=== PATIENT | male | born 1955 | race Caucasian/White ===

== ENCOUNTER 2023-11-30 05:21 | Day surgery (SDC) | payer OTHER ==
[2023-11-22 15:32] LABS: BILIRUBIN,URINE NEGATIVE (Neg); CLARITY,URINE CLEAR (Clear); COLOR,URINE YELLOW (Yellow); GLUCOSE, URINE NEGATIVE (Neg); KETONES,URINE NEGATIVE (Neg); LEUKOCYTE ESTERASE ,URINE NEGATIVE (Neg); NITRITES, URINE NEGATIVE (Neg); OCCULT BLOOD,URINE TRACE-INTACT (Neg); PROTEIN,URINE NEGATIVE (Neg); UROBILINOGEN,URINE 0.2 E.U/dL (0.2-1.0)
[2023-11-22 15:34] LABS: BASOPHILS # (AUTO) 0.1 X10'3 (0-0.2); BASOPHILS % (AUTO) 1.2 % (0-1); EOSINOPHILS # (AUTO) 0.1 X10'3 (0-0.9); EOSINOPHILS % (AUTO) 2.1 % (0-6); LYMPHOCYTES # (AUTO) 2.5 X10'3 (1.1-4.8); LYMPHOCYTES % (AUTO) 36.1 % (21-51); MEAN CORPUSCULAR HEMOGLOBIN 32.3 PG (27.0-31.0); MEAN CORPUSCULAR HGB CONC 35.1 g/dL (33.0-36.5); MEAN PLATELET VOLUME 6.9 FL (7.4-10.4); MONOCYTES # (AUTO) 0.7 X10'3 (0-0.9); MONOCYTES % (AUTO) 9.5 % (2-12); NEUTROPHILS # (AUTO) 3.5 X10'3 (1.8-7.7); NEUTROPHILS % (AUTO) 51.1 % (42-75); PRE OP HEMATOCRIT 43.2 % (42.0-52.0); PRE OP HEMOGLOBIN 15.1 g/dL (14.0-17.9); PRE OP PLATELET COUNT 208 X10'3 (140-440); PRE OP WHITE BLOOD COUNT 6.9 10'3 (4.8-10.8); RED BLOOD COUNT 4.69 X10'6 (4.70-6.10); RED CELL DISTRIBUTION WIDTH 13.7 % (11.5-14.5)
[2023-11-22 15:46] LABS: UA COLLECTION TYPE CLN CATCH MIDSTREAM
[2023-11-22 15:47] LABS: BACTERIA,URINE NONE SEEN /HPF (Neg); RBC,URINE 0-2 /HPF (0-2); SQUAMOUS EPITHELIAL CELL,UR FEW /LPF (FEW)
[2023-11-22 15:48] LABS: WBC,URINE 0-4 /HPF (0-4)
[2023-11-22 15:53] LABS: ALBUMIN 3.8 G/DL (3.4-5.0); ALBUMIN/GLOBULIN RATIO 1.1 (1.1-1.5); ALKALINE PHOSPHATASE 96 IU/L (46-116); BLOOD UREA NITROGEN 15 MG/DL (7-18); BUN/CREATININE RATIO 9.6 (10.0-20.0); CALCIUM 8.8 MG/DL (8.5-10.1); CHLORIDE 104 MMOL/L (99-107); CREATININE 1.57 MG/DL (0.60-1.10); PRE OP ALT 36 U/L (30-65); PRE OP ANION GAP 8 (8-16); PRE OP AST 21 U/L (10-37); PRE OP BILIRUB, TOTAL 0.5 MG/DL (0.0-1.0); PRE OP GLUCOSE 115 MG/DL (70-104); PRE OP POTASSIUM 4.6 MMOL/L (3.4-5.1); PRE OP SODIUM 141 MMOL/L (135-145); TOTAL PROTEIN 7.3 G/DL (6.4-8.2); eGFR 44 ML/MIN
[~2023-11-30] VITALS: Ht 175.3 cm; Wt 92.1 kg
[2023-11-30] VITALS (9 sets, daily range): BP systolic 11–160; BP diastolic 54–87; PULSE 60–160; RESP 12–71; TEMP 97.7; O2SAT 95–98
[~2023-11-30 05:21] MED LIST: ASPI81TA52 PO; ATOR-2 PO; CHOL200080 PO; CYAN100087 PO; FLO0.4C PO; OMEP20CA16 PO
[2023-11-30] MEDS ORDERED: ringers solution, lacted 1,000 ML IV SCH ×2 (05:30→07:20)
[2023-11-30] MEDS: cefazolin 2gm/D5W 100mL 100 ML IV ONE (05:43)
[2023-11-30] MEDS: famotidine 20mg tablet PO ONE (05:48)
[2023-11-30] MEDS ORDERED: bacitracin 15gm ointment TP ONE (06:42)
[2023-11-30] MEDS ORDERED: BUPIVAcaine/PF 2.5mg/ml (0.25%) 10ml vial ONE (06:42)
[2023-11-30] MEDS ORDERED: fentaNYL/PF 50MCG/1 ML 2ML syringe ONE (07:12)
[2023-11-30] MEDS ORDERED: midazolam 1 mg/ML 2ml injection ONE (07:12)
[2023-11-30] MEDS ORDERED: dexamethasone sod phosphate 4mg/ml inj. ONE (07:13)
[2023-11-30] MEDS ORDERED: LIDOcaine 2% (20mg/ml) 5ml vial ONE (07:13)
[2023-11-30] MEDS ORDERED: propofol inj 20 ML IV ONE (07:13)
[2023-11-30] MEDS ORDERED: ondansetron/PF 4mg/2ml inj ONE (07:13)
[2023-11-30] MEDS ORDERED: ROPIVAcaine 0.5% (5mg/ml) 30ml vial ONE (07:14)
[2023-11-30] MEDS ORDERED: hydrALAZINE 20mg/ml inj. IV PRN (07:20)
[2023-11-30] MEDS ORDERED: labetalol 20mg/4ml (5mg/ml) syringe IV PRN (07:20)
[2023-11-30] MEDS ORDERED: ondansetron/PF 4mg/2ml inj IV PRN (07:20)
[2023-11-30] MEDS ORDERED: fentaNYL/PF 50MCG/1 ML 2ML syringe IV PRN ×2 (07:20)
[2023-11-30] MEDS ORDERED: sevoflurane 250ml liquid IH ONE (07:45)
[2023-11-30] MEDS ORDERED: acetaminophen 1,000mg/100ml IV 100 ML IV ONE (08:01)
[2023-11-30] MEDS ORDERED: hydrALAZINE 20mg/ml inj. IV ONE (08:17)
[2023-11-30] MEDS: morphine 2 MG/ML inj. syringe IV PRN (09:10)
[2023-11-30] MEDS: morphine 4 MG/ML inj SYRINge IV PRN (09:23)
== END 2023-11-30 10:30 | disposition home or self-care (01) ==
LOC: PAS 05:21
PROVIDERS: ATTEND Podiatrist Foot & Ankle Surgery
DX: M25.374 Other instability, right foot (principal); K21.9 Gastro-esophageal reflux disease without esophagitis; Z98.890 Other specified postprocedural states; G47.33 Obstructive sleep apnea (adult) (pediatric); I20.9 Angina pectoris, unspecified; E78.5 Hyperlipidemia, unspecified; Z79.82 Long term (current) use of aspirin; Z79.899 Other long term (current) drug therapy; Z79.891 Long term (current) use of opiate analgesic
CPT/HCPCS: 28750; 36415; 73620; 80053; 81001; 82948; 85025; A6223; C1713; J0131; J0360; J0690; J1100; J2250; J2270; J2405; J2704; J2795; J3010; J3490; J7030; J7120; L4360; Z7506; Z7508; Z7512; 76000; A4215; A4618; A6449; A7000